=== PATIENT | female | born 1980 | race Caucasian/White ===

== ENCOUNTER 2016-07-03 20:35 | Emergency (ER) | payer OTHER ==
--- NOTE | 2016-07-03 21:41 | ED ORDER SUMMARY ---
..... Patient: DUNIA WEBB OrderSheet [facility] VisitID: [id number] [address] [place] [address] 36y, F Registration Date/Time: 07/03/2016 ORDER SHEET Weight: 75.2 kg (stated) Allergies: No Known Drug Allergy GENERAL ORDERS: Eye Tray (wood's lamp please.) (21:19 07/03/2016 JCoates) (21:28 AMcKenna) MEDICATION ORDERS: Proparacaine Eye Drops (Solution 0.5 %) 2 drops (place at bedside) (21:17 07/03/2016 JCoates) (Ack 21:20 AMcKenna) (3:42 HSoule) Fluorescein Eye Strips 1 strips (NOW) (21:18 07/03/2016 JCoates) (Ack 21:20 AMcKenna) (3:43 HSoule) IV FLUIDS: ORDER SHEET NOTES: [Electronically signed by Joss Sanchez (23:50 07/03/2016)] [Electronically signed by Ayde Barboza (03:44 07/04/2016)] [Electronically locked/signed by Ayde Barboza (03:44 07/04/2016)]
--- NOTE | 2016-07-03 21:41 | ED NURSING NOTES ---
Clinical Report - Nurses [facility] [address] [place] [address] 07/03/2016 20:39 Patient: DUNIA WEBB TRIAGE Triage time 20:46 Jul 03 2016. Chief Complaint: REDNESS and PAIN TO RIGHT EYE. SEPSIS SCREEN: Sepsis Screen: negative. Negative (no infection suspected/documented). PRAKASH COMA SCORE: Prakash Coma Scale: 15- eyes open spontaneously (4); best verbal response- oriented and converses (5); best motor response- obeys commands (6). --20:52 AliM 20:46 07/03/16. BP: 131/73. HR: 85. RR: 14. O2 saturation: 99% on room air. Temp: 98.2 F (oral). Pain level now: 07/11. --20:52 AliM. Weight: 75.2 kg stated. Height/Length: 67 inches Per Patient. BMI: 26. --20:51 AliM. Medications None. --20:48 AliM. Allergies No Known Drug Allergy. --20:48 AliM. History Arrived by private vehicle. Historian: patient. Unaccompanied. Primary physician (Seth). ( Right eye pain). This started today. She did not sustain an injury. ( Pt states she woke up with red irritated eye. Pain and irritation has been progressing throughout the day. Pt states white colored discharge present at times. No trauma to eye. Pt states she normally wears contacts and slept in them last night but has not worn them today.). She has had eye discomfort, eye irritation and eye discharge. No blurred vision or decreased vision. PAST MEDICAL HX: The patient wears soft contact lenses. Immunizations: up-to-date. Last normal menstrual period- Irregular periods, on mirena. SOCIAL HX: Never smoker. Occasional alcohol use. No drug use. No infectious disease exposure. ABUSE ASSESSMENT: No report of abuse. FALL RISK ASSESSMENT: Fall risk assessment completed. No fall risk identified. NUTRITIONAL RISK ASSESSMENT: The nutritional risk assessment revealed no deficiencies. FUNCTIONAL ASSESSMENT: Functional assessment: no impairments noted. LEARNING NEEDS ASSESSMENT: The learning needs assessment revealed no barriers. SKIN INTEGRITY ASSESSMENT: Skin integrity risk assessment completed. No skin integrity risk identified. --20:52 AliM. ADDITIONAL SURGERIES: C section. Guttenberg teeth removed. --20:49 AliM. Interventions To treatment room. No ID band on patient. --20:52 AliM. PHYSICAL ASSESSMENT Ambulatory to room. GENERAL / NEURO / PSYCH: Alert. Appears in no acute distress. HEENT: No facial asymmetry noted. Visual acuity with corrective lenses: able to count fingers at three feet; see hand motion; perceive light. Conjunctival findings present: redness of the right conjunctiva. EOM intact. Right ear within normal limits. Left ear within normal limits. Mouth inspection within normal limits. Pharynx within normal limits. RESPIRATORY: Respirations not labored. CVS: Capillary refill less than 2 seconds. SKIN: Skin is warm and dry. Normal skin turgor. --20:54 AliM. NURSING PROGRESS NOTES The plan of care for this patient has been created. Head of bed elevated. Reassurance given. Call light placed in reach. Side rails up x 1. Bed placed in lowest position. Brakes of bed on. Patient ready for evaluation- ED physician notified. --20:54 AliM 21:20 07/03/2016 Proparacaine Eye Drops Opthalmic solution 2 drop given. Given in both eyes. Allergies verified and confirmed 5 rights. --03:42 Ayde Barboza 21:20 07/03/2016 FLUORESCEIN Opth soln Opthalmic solution 1 Strip given. Allergies verified and confirmed 5 rights. --03:43 Ayde Barboza. DISPOSITION / DISCHARGE Condition at departure: unchanged and stable. No learning barriers present. Discharge instructions provided and reviewed with the patient. Patient verbalized understanding. Written instructions provided in Guinean. ( Taught pt to avoid touching eye area, wash hands frequently. Taught pt to use warm wash cloth for irritation/discharge wiping from inner corner to outer corner. Also taught pt to avoid touching abx sln tip to the eye.). 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 She was discharged home and unaccompanied at time of discharge. She left the Emergency Department ambulatory and via private vehicle. Patient driving. FALL RISK ASSESSMENT: Fall risk assessment completed. No fall risk identified. --21:53 AliM 21:50 07/03/16. BP: 122/67. HR: 79. RR: 14 (regular, unlabored and normal). O2 saturation: 96% on room air. Temp: 98.3 F (oral). Pain level now: 0/10. --21:53 AliM 23:16 07/03/16. ( Chart reviewed by writing RN). --23:16 Ayde Barboza. Locked/Released at 07/04/2016 3:44 by Ayde Barboza,
--- NOTE | 2016-07-03 21:41 | ED CLINICAL REPORT ---
Clinical Report - Physicians/Mid Levels [facility] [address] [place] [address] 07/03/2016 20:39 [id number] Time Seen: 21:14 Jul 03 2016. Arrived- By private vehicle. Historian- patient. HISTORY OF PRESENT ILLNESS Chief Complaint: EYE PAIN and REDNESS. This started today, involves the right eye and is characterized as mild. The patient did not sustain an injury. This occurred at home. She wears contact lenses. She slept in hers contacts. Eye discomfort, redness, discharge, matting and itching. Patient denies injury to the head. REVIEW OF SYSTEMS No fever, ear pain, sore throat, diarrhea or nausea. No vomiting. She has had nasal congestion, a runny nose and a cough. All systems otherwise negative, except as recorded above. PAST HISTORY See nurses notes. The patient wears contact lenses. No history of prior eye injury, diabetes mellitus or glaucoma. SOCIAL HISTORY Never smoker. Alcohol use. No drug use. ADDITIONAL NOTES The nursing notes have been reviewed. PHYSICAL EXAM Appearance: Alert. Oriented X3. No acute distress. HEENT: Ears normal. Nose normal. Pharynx normal. Head appears normal to external inspection. Eyes: Visual acuity noted- see nurse's notes. Right eyelid everted for examination. Right cornea examined with fluorescein stain. Eyelids appear normal to inspection. Corneas appear normal to inspection. Pupils equal, round and reactive to light. Accommodation normal. Visual hills normal. EOMs intact. Periorbital areas appear normal to inspection. Rt Eye: Mildly injected conjunctiva. Slight exudate present (Clear exudate.). No fluorescein dye uptake. Lt Eye: Left eye exam normal. Neck: Neck supple. Normal inspection. No lymphadenopathy. Respiratory: No respiratory distress. Skin: No rash. Extremities: Extremities negative. Neuro: Oriented X 3. Mood/affect normal. No motor deficit. No sensory deficit. PROGRESS AND PROCEDURES Course of Care: Patient stable. Recent viral URI so this may be simple viral conjunctivitis. However, she did recently sleep in her contact lenses so we'll cover for a very early corneal ulcer with ciprofloxacin drops. No obvious ulcer on fluorescein/was lamp exam. We'll discharge home. Follow up with her primary care provider or with ophthalmology in the next 5 days if not significantly improving. Sooner here if worsening or further concerns. Disposition: Discharged in good and unchanged condition. CLINICAL IMPRESSION Acute conjunctivitis of the right eye. INSTRUCTIONS Do not work tomorrow. No dietary restrictions. Warnings: GENERAL WARNINGS: Return or contact your physician immediately if your condition worsens or changes unexpectedly, if not improving as expected, or if other problems arise. Specifically return if vomiting or fever worsens. Prescription Medications: Ciprofloxacin ophthalmic solution: instill 1 drop into the affected eye every 4 hours while awake for 7 days. Dispense sufficient quantity. One refill. Follow-up: Follow up with your doctor in five days if not better. Understanding of the discharge instructions verbalized by patient. (Electronically signed by Joss Sanchez, 07/03/2016 23:50)
--- NOTE | 2016-07-03 21:41 | ED CLINICAL REPORT ---
Clinical Report - Physicians/Mid Levels [facility] [address] [place] [address] 07/03/2016 20:39 [id number] Time Seen: 21:14 Jul 03 2016. Arrived- By private vehicle. Historian- patient. HISTORY OF PRESENT ILLNESS Chief Complaint: EYE PAIN and REDNESS. This started today, involves the right eye and is characterized as mild. The patient did not sustain an injury. This occurred at home. She wears contact lenses. She slept in hers contacts. Eye discomfort, redness, discharge, matting and itching. Patient denies injury to the head. REVIEW OF SYSTEMS No fever, ear pain, sore throat, diarrhea or nausea. No vomiting. She has had nasal congestion, a runny nose and a cough. All systems otherwise negative, except as recorded above. PAST HISTORY See nurses notes. The patient wears contact lenses. No history of prior eye injury, diabetes mellitus or glaucoma. SOCIAL HISTORY Never smoker. Alcohol use. No drug use. ADDITIONAL NOTES The nursing notes have been reviewed. PHYSICAL EXAM Appearance: Alert. Oriented X3. No acute distress. HEENT: Ears normal. Nose normal. Pharynx normal. Head appears normal to external inspection. Eyes: Visual acuity noted- see nurse's notes. Right eyelid everted for examination. Right cornea examined with fluorescein stain. Eyelids appear normal to inspection. Corneas appear normal to inspection. Pupils equal, round and reactive to light. Accommodation normal. Visual hills normal. EOMs intact. Periorbital areas appear normal to inspection. Rt Eye: Mildly injected conjunctiva. Slight exudate present (Clear exudate.). No fluorescein dye uptake. Lt Eye: Left eye exam normal. Neck: Neck supple. Normal inspection. No lymphadenopathy. Respiratory: No respiratory distress. Skin: No rash. Extremities: Extremities negative. Neuro: Oriented X 3. Mood/affect normal. No motor deficit. No sensory deficit. PROGRESS AND PROCEDURES Course of Care: Patient stable. Recent viral URI so this may be simple viral conjunctivitis. However, she did recently sleep in her contact lenses so we'll cover for a very early corneal ulcer with ciprofloxacin drops. No obvious ulcer on fluorescein/was lamp exam. We'll discharge home. Follow up with her primary care provider or with ophthalmology in the next 5 days if not significantly improving. Sooner here if worsening or further concerns. Disposition: Discharged in good and unchanged condition. CLINICAL IMPRESSION Acute conjunctivitis of the right eye. INSTRUCTIONS Do not work tomorrow. No dietary restrictions. Warnings: GENERAL WARNINGS: Return or contact your physician immediately if your condition worsens or changes unexpectedly, if not improving as expected, or if other problems arise. Specifically return if vomiting or fever worsens. Prescription Medications: Ciprofloxacin ophthalmic solution: instill 1 drop into the affected eye every 4 hours while awake for 7 days. Dispense sufficient quantity. One refill. Follow-up: Follow up with your doctor in five days if not better. Understanding of the discharge instructions verbalized by patient. (Electronically signed by Joss Sanchez, 07/03/2016 23:50)
--- NOTE | 2016-07-03 21:41 | ED ORDER SUMMARY ---
..... Patient: DUNIA WEBB OrderSheet [facility] VisitID: [id number] [address] [place] [address] 36y, F Registration Date/Time: 07/03/2016 ORDER SHEET Weight: 75.2 kg (stated) Allergies: No Known Drug Allergy GENERAL ORDERS: Eye Tray (wood's lamp please.) (21:19 07/03/2016 JCoates) (21:28 AMcKenna) MEDICATION ORDERS: Proparacaine Eye Drops (Solution 0.5 %) 2 drops (place at bedside) (21:17 07/03/2016 JCoates) (Ack 21:20 AMcKenna) (3:42 HSoule) Fluorescein Eye Strips 1 strips (NOW) (21:18 07/03/2016 JCoates) (Ack 21:20 AMcKenna) (3:43 HSoule) IV FLUIDS: ORDER SHEET NOTES: [Electronically signed by Joss Sanchez (23:50 07/03/2016)] [Electronically signed by Ayde Barboza (03:44 07/04/2016)] [Electronically locked/signed by Ayde Barboza (03:44 07/04/2016)]
--- NOTE | 2016-07-04 03:44 | ED MAR SUMMARY ---
..... Medication Administration Record [facility] [address] [place] [address] Patient: DUNIA WEBB Visit ID: [id number] 36y, F Weight: 75.2 kg Height/Length: 67 in BMI: 26 ALLERGIES: No Known Drug Allergy Given 21:20 07/03/2016 Ayde Barboza, Medication Administered: PROPARACAINE [EYE DROPS], Dose: 2 drop Opthalmic solution Eye Drops. Medication Ordered: Proparacaine Eye Drops (Solution 0.5 %) 2 drops (place at bedside). Given 21:20 07/03/2016 Ayde Barboza, Medication Administered: FLUORESCEIN [EYE STRIPS], Dose: 1 Strip Opthalmic solution Opth soln. Medication Ordered: Fluorescein Eye Strips 1 strips (NOW).
--- NOTE | 2016-07-04 03:44 | ED DISCHARGE INSTRUCTIONS ---
Patient: DUNIA WEBB General Instructions [facility] VisitID: [id number] [address] [place] [address] 36y, F Registration Date/Time: 07/03/2016 Acute conjunctivitis of the right eye. INSTRUCTIONS Do not work tomorrow. No dietary restrictions. Warnings: GENERAL WARNINGS: Return or contact your physician immediately if your condition worsens or changes unexpectedly, if not improving as expected, or if other problems arise. Specifically return if vomiting or fever worsens. Prescription Medications: Ciprofloxacin ophthalmic solution: instill 1 drop into the affected eye every 4 hours while awake for 7 days. Dispense sufficient quantity. One refill. Follow-up: Follow up with your doctor in five days if not better. Understanding of the discharge instructions verbalized by patient. ADDITIONAL INFORMATION Conjunctivitis, Bacterial You have a bacterial infection in the membranes covering the eye. The most common symptoms include a thick discharge from the eye, swollen eyelids, redness, eyelids sticking together upon awakening, and a gritty or scratchy feeling in the eye. The infection takes about 7-10 days to resolve with treatment. Home Care: Use prescribed eyedrops or ointment as directed to treat the infection. Apply a warm pack (towel soaked in warm water) to the affected eye 3-4 times a day. Do this just before applying medicine to the eye. Use a warm, wet cloth to wipe away crusting of the eyelids in the morning. This is caused by mucus drainage during the night. You may also use saline irrigating solution or artificial tears to rinse away mucus inside the eye. Do not put a patch over the eye. Wash your hands before and after touching the infected eye. This is to prevent spreading the infection to the other eye, and to other people. Do not share your towels or washcloths with others. You may use acetaminophen (Tylenol) or ibuprofen (Motrin, Advil) to control pain, unless another medicine was prescribed. [NOTE: If you have chronic liver or kidney disease or ever had a stomach ulcer or GI bleeding, talk with your doctor before using these medicines.] Do not wear contact lenses until your eyes have healed and all symptoms are gone. Follow Up with your doctor or this facility as directed, or if there has not been improvement within 5 days. Get Prompt Medical Attention if any of the following occur: Worsening vision Increasing pain in the eye Increasing swelling or redness of the eyelid Redness spreading around the eye Ciprofloxacin Hydrochloride Eye drops, solution What is this medicine? CIPROFLOXACIN (sip shayan FLOX a sin) is a quinolone antibiotic. It is used to treat bacterial eye infections. How should I use this medicine? This medicine is only for use in the eye. Follow the directions on the prescription label. Wash hands before and after use. Try not to touch the tip of the dropper to anything, even your eye or fingertips.Tilt your head back slightly and pull your lower eyelid down with your index finger to form a pouch. Squeeze the prescribed number of drops into the pouch. Close the eye gently to spread the drops. Your vision may blur for a few minutes. Use your doses at regular intervals. Do not use your medicine more often than directed. Finish the full course that is prescribed even if you think your condition is better. Do not skip doses or stop your medicine early. Talk to your draw frame operator regarding the use of this medicine in children. Special care may be needed. What side effects may I notice from receiving this medicine? Side effects that you should report to your doctor or health career specialist as soon as possible: allergic reactions like skin rash, itching or hives, swelling of the face, lips, or tongue blurred vision that does not go away Side effects that usually do not require medical attention (report to your doctor or health career specialist if they continue or are bothersome): temporary blurred vision tearing or feeling of something in the eye What may interact with this medicine? Interactions are not expected. Do not use any other eye products without telling your doctor or health career specialist. What if I miss a dose? If you miss a dose, use it as soon as you can. If it is almost time for your next dose, use only that dose. Do not use double or extra doses. Where should I keep my medicine? Keep out of the reach of children. Store at room temperature between 2 and 25 degrees C (36 and 77 degrees F). Protect from light. Throw away any unused medicine after the expiration date. What should I tell my health care provider before I take this medicine? They need to know if you have any of these conditions: contact lens wearer an unusual or allergic reaction to ciprofloxacin, other antibiotics or medicines, foods, dyes, or preservatives or trying to get breast-feeding What should I watch for while using this medicine? Tell your doctor or health career specialist if your symptoms do not improve in 2 to 3 days or if they get worse. If your eyes are more sensitive to light, wear sunglasses. Do not wear contact lenses while you have any signs or symptoms of an eye infection. Ask your doctor or health career specialist when you can start wearing your contacts again. Stop using this medicine immediately if you notice signs of an allergic reaction. You have been given the following additional information: Conjunctivitis, Bacterial Ciprofloxacin Hydrochloride Eye drops, solution Do not work tomorrow. (Electronically signed by Joss Sanchez, 07/03/2016 23:50)
--- NOTE | 2016-07-04 03:44 | ED MAR SUMMARY ---
..... Medication Administration Record [facility] [address] [place] [address] Patient: DUNIA WEBB Visit ID: [id number] 36y, F Weight: 75.2 kg Height/Length: 67 in BMI: 26 ALLERGIES: No Known Drug Allergy Given 21:20 07/03/2016 Ayde Barboza, Medication Administered: PROPARACAINE [EYE DROPS], Dose: 2 drop Opthalmic solution Eye Drops. Medication Ordered: Proparacaine Eye Drops (Solution 0.5 %) 2 drops (place at bedside). Given 21:20 07/03/2016 Ayde Barboza, Medication Administered: FLUORESCEIN [EYE STRIPS], Dose: 1 Strip Opthalmic solution Opth soln. Medication Ordered: Fluorescein Eye Strips 1 strips (NOW).
--- NOTE | 2016-07-04 03:44 | ED DISCHARGE INSTRUCTIONS ---
Patient: DUNIA WEBB General Instructions [facility] VisitID: [id number] [address] [place] [address] 36y, F Registration Date/Time: 07/03/2016 Acute conjunctivitis of the right eye. INSTRUCTIONS Do not work tomorrow. No dietary restrictions. Warnings: GENERAL WARNINGS: Return or contact your physician immediately if your condition worsens or changes unexpectedly, if not improving as expected, or if other problems arise. Specifically return if vomiting or fever worsens. Prescription Medications: Ciprofloxacin ophthalmic solution: instill 1 drop into the affected eye every 4 hours while awake for 7 days. Dispense sufficient quantity. One refill. Follow-up: Follow up with your doctor in five days if not better. Understanding of the discharge instructions verbalized by patient. ADDITIONAL INFORMATION Conjunctivitis, Bacterial You have a bacterial infection in the membranes covering the eye. The most common symptoms include a thick discharge from the eye, swollen eyelids, redness, eyelids sticking together upon awakening, and a gritty or scratchy feeling in the eye. The infection takes about 7-10 days to resolve with treatment. Home Care: Use prescribed eyedrops or ointment as directed to treat the infection. Apply a warm pack (towel soaked in warm water) to the affected eye 3-4 times a day. Do this just before applying medicine to the eye. Use a warm, wet cloth to wipe away crusting of the eyelids in the morning. This is caused by mucus drainage during the night. You may also use saline irrigating solution or artificial tears to rinse away mucus inside the eye. Do not put a patch over the eye. Wash your hands before and after touching the infected eye. This is to prevent spreading the infection to the other eye, and to other people. Do not share your towels or washcloths with others. You may use acetaminophen (Tylenol) or ibuprofen (Motrin, Advil) to control pain, unless another medicine was prescribed. [NOTE: If you have chronic liver or kidney disease or ever had a stomach ulcer or GI bleeding, talk with your doctor before using these medicines.] Do not wear contact lenses until your eyes have healed and all symptoms are gone. Follow Up with your doctor or this facility as directed, or if there has not been improvement within 5 days. Get Prompt Medical Attention if any of the following occur: Worsening vision Increasing pain in the eye Increasing swelling or redness of the eyelid Redness spreading around the eye Ciprofloxacin Hydrochloride Eye drops, solution What is this medicine? CIPROFLOXACIN (sip shayan FLOX a sin) is a quinolone antibiotic. It is used to treat bacterial eye infections. How should I use this medicine? This medicine is only for use in the eye. Follow the directions on the prescription label. Wash hands before and after use. Try not to touch the tip of the dropper to anything, even your eye or fingertips.Tilt your head back slightly and pull your lower eyelid down with your index finger to form a pouch. Squeeze the prescribed number of drops into the pouch. Close the eye gently to spread the drops. Your vision may blur for a few minutes. Use your doses at regular intervals. Do not use your medicine more often than directed. Finish the full course that is prescribed even if you think your condition is better. Do not skip doses or stop your medicine early. Talk to your pals nurse regarding the use of this medicine in children. Special care may be needed. What side effects may I notice from receiving this medicine? Side effects that you should report to your doctor or health urgent care as soon as possible: allergic reactions like skin rash, itching or hives, swelling of the face, lips, or tongue blurred vision that does not go away Side effects that usually do not require medical attention (report to your doctor or health urgent care if they continue or are bothersome): temporary blurred vision tearing or feeling of something in the eye What may interact with this medicine? Interactions are not expected. Do not use any other eye products without telling your doctor or health urgent care. What if I miss a dose? If you miss a dose, use it as soon as you can. If it is almost time for your next dose, use only that dose. Do not use double or extra doses. Where should I keep my medicine? Keep out of the reach of children. Store at room temperature between 2 and 25 degrees C (36 and 77 degrees F). Protect from light. Throw away any unused medicine after the expiration date. What should I tell my health care provider before I take this medicine? They need to know if you have any of these conditions: contact lens wearer an unusual or allergic reaction to ciprofloxacin, other antibiotics or medicines, foods, dyes, or preservatives or trying to get breast-feeding What should I watch for while using this medicine? Tell your doctor or health urgent care if your symptoms do not improve in 2 to 3 days or if they get worse. If your eyes are more sensitive to light, wear sunglasses. Do not wear contact lenses while you have any signs or symptoms of an eye infection. Ask your doctor or health urgent care when you can start wearing your contacts again. Stop using this medicine immediately if you notice signs of an allergic reaction. You have been given the following additional information: Conjunctivitis, Bacterial Ciprofloxacin Hydrochloride Eye drops, solution Do not work tomorrow. (Electronically signed by Joss Sanchez, 07/03/2016 23:50)
--- NOTE | 2016-07-04 03:44 | ED MED RECONCILIATION SUMMARY ---
Patient: DUNIA WEBB Medication Reconciliation Report [facility] VisitID: [id number] [address] [place] [address] 36y, F Registration Date/Time: 07/03/2016 Weight: 75.2 kg Height/Length: 67 in. BMI: 26.0 ALLERGIES: No Known Drug Allergy The patient's Home Medications are listed below: NONE. The source(s) of the original Home Medication information: Not obtained. The following Medications were given to the patient in the Emergency Department: Proparacaine [Eye Drops] Eye Drops 2 drop, administered: 07/03/2016 9:20:00 PM FLUORESCEIN [EYE STRIPS] Opth soln 1 Strip, administered: 07/03/2016 9:20:00 PM The following Medications were prescribed to the patient: Ciprofloxacin ophthalmic solution: instill 1 drop into the affected eye every 4 hours while awake for 7 days. Dispense sufficient quantity. One refill. -- Joss Sanchez
--- NOTE | 2016-07-04 03:44 | ED MED RECONCILIATION SUMMARY ---
Patient: DUNIA WEBB Medication Reconciliation Report [facility] VisitID: [id number] [address] [place] [address] 36y, F Registration Date/Time: 07/03/2016 Weight: 75.2 kg Height/Length: 67 in. BMI: 26.0 ALLERGIES: No Known Drug Allergy The patient's Home Medications are listed below: NONE. The source(s) of the original Home Medication information: Not obtained. The following Medications were given to the patient in the Emergency Department: Proparacaine [Eye Drops] Eye Drops 2 drop, administered: 07/03/2016 9:20:00 PM FLUORESCEIN [EYE STRIPS] Opth soln 1 Strip, administered: 07/03/2016 9:20:00 PM The following Medications were prescribed to the patient: Ciprofloxacin ophthalmic solution: instill 1 drop into the affected eye every 4 hours while awake for 7 days. Dispense sufficient quantity. One refill. -- Joss Sanchez
== END 2016-07-03 21:42 | disposition home or self-care (01) ==
LOC: ED SRH 20:35
DX: H10.9 Unspecified conjunctivitis (principal)